=== PATIENT | female | born 1970 | race Caucasian/White ===

== ENCOUNTER 2023-05-27 06:58 | Day surgery (SDC) | payer BC ==
[~2023-05-27] VITALS: Ht 174 cm; Wt 83.9 kg
[2023-05-27] MEDS ORDERED: IMITREX100 MG PO (07:20)
[2023-05-27] MEDS ORDERED: WELLBUTRIN XL150 MG PO (07:20)
[2023-05-27 07:50] VITALS: BP 133/96; PULSE 83; TEMP 97.6
--- NOTE | 2023-05-27 07:52 | NUR ---
0715 Pt ambulatory to bay 2 with steady gait, breathing even and unlabored. Pt is alert and oriented. Consents reviewed and signed by pt. IV established. LR infusing via gravity at KVO. Call light in reach. Warm blanket provided.
[2023-05-27 09:17] VITALS: BP 112/75; PULSE 92; TEMP 97.4
[2023-05-27 09:30] VITALS: BP 109/79; PULSE 84
[2023-05-27 09:45] VITALS: BP 125/86; PULSE 68
[2023-05-27 10:00] VITALS: BP 124/81; PULSE 70
--- NOTE | 2023-05-27 10:10 | NUR ---
0917 RETURNS TO ROOM 2 PER CART. AWAKE, ALERT. RESP UNLABORED. AMBULATES TO RECLINER WITH STANDBY ASSIST. DENIES NAUSEA OR ABD PAIN. VITAL SIGNS OBTAINED. CALL LIGHT AT SIDE 0930 TOLERATES PO JUICE, PUDDING AND SALTINE CRACKERS WITHOUT NAUSEA 0940 DISCHARGE INSTRUCTIONS REVIEWED. PATIENT VERBALIZES UNDERSTANDING. COPY PROVIDED IN DISCHARGE FOLDER 0916 WAITING TO VISIT WITH DR [address] DR[address] ROSALES HERE TO VISIT WITH PATIENT 1008 DRESSES SELF
== END 2023-05-27 10:14 | disposition home or self-care (01) ==
LOC: SDCO 06:58
DX: Z12.11 Encounter for screening for malignant neoplasm of colon (principal); F17.210 Nicotine dependence, cigarettes, uncomplicated; F33.9 Major depressive disorder, recurrent, unspecified; G43.809 Other migraine, not intractable, without status migrainosus; G47.09 Other insomnia
CPT/HCPCS: J2250; J2704; J7120